=== PATIENT | male | born 1960 | race Caucasian/White ===

== ENCOUNTER → 2017-03-03 | Outpatient (CLI) | payer OTHER ==
[~2017-03-03] VITALS: Ht 180.3 cm; Wt 113.9 kg
[~2017-03-03] MED LIST: SENNA8.6 MG PO
[2017-03-03 10:00] VITALS: BP 136/84
== END | disposition home or self-care (01) ==
LOC: SPEC 08:57
DX: N19 Unspecified kidney failure (principal)

== ENCOUNTER → 2017-03-31 | Outpatient (CLI) | payer OTHER ==
[2017-03-31 08:20] VITALS: BP 158/83
[2017-03-31 10:35] VITALS: BP 167/86
[2017-03-31 10:49] VITALS: BP 167/86
== END ==
LOC: SPEC 06:30
DX: N19 Unspecified kidney failure (principal); I48.91 Unspecified atrial fibrillation; E78.5 Hyperlipidemia, unspecified; R60.1 Generalized edema; I12.0 Hypertensive chronic kidney disease with stage 5 chronic kidney disease or end stage renal disease; E11.22 Type 2 diabetes mellitus with diabetic chronic kidney disease; N18.6 End stage renal disease; I48.92 Unspecified atrial flutter; Z86.73 Personal history of transient ischemic attack (TIA), and cerebral infarction without residual deficits; Z83.3 Family history of diabetes mellitus; Z82.3 Family history of stroke; Z82.49 Family history of ischemic heart disease and other diseases of the circulatory system; Z80.8 Family history of malignant neoplasm of other organs or systems; Z87.891 Personal history of nicotine dependence

== ENCOUNTER → 2017-05-14 | Outpatient (CLI) | payer OTHER ==
[~2017-05-14] VITALS: Ht 180.3 cm; Wt 110.7 kg
[~2017-05-14] MED LIST changes: +ASPIR 8181 MG PER TUBE; +COLACE100 MG PER TUBE; +DEXTROSE 10% IV; +DUONEB 2.5-0.5 M3 ML INH; +EPOGEN10000 UNIT SUBQ; +ERYTHROMYCIN250 MG PER TUBE; +FLORASTOR250 MG PER TUBE; +HEPARIN SO5000 UNIT2 SUBQ; +LEVEMIR SUBQ; +LIPITOR40 MG PER TUBE; +LOPRESSOR100 M1 PER TUBE; +MIRALAX17 GM PER TUBE; +NEPHROCAPS SOFT1 CAP PER TUBE; +NOVOLOG100 UNIT/1 SUBQ; +OMEPRAZOLE 20 M20 M1 PO; +OXYCODONE HCL 55 MG PER TUBE; +OXYCONTIN10 M1; +PACERONE 200 M200 M1 PER TUBE; +PLAVIX 75 MG TA75 M1 PER TUBE; +PROBIOTIC1 EAC1 PO; +PROTONIX40 M2 PER TUBE; +REGLAN 10 MG TA10 MG PER TUBE; +ROCALTROL0.25 MCG PER TUBE; +TOBRAMYCIN IV; +TYLENOL325 MG PO; +ZERBAXA 1-0.51.5 GM IV
[2017-05-14 09:22] VITALS: BP 137/75
[2017-05-14 10:11] LABS: APTT 31.2 Seconds (24.5-32.8); INR 1.1; PROTIME 11.2 Seconds (9.3-11.4)
== END | disposition home or self-care (01) ==
LOC: SPEC 09:22
PROVIDERS: Radiology Vascular & Interventional Radiology
DX: K94.23 Gastrostomy malfunction (principal); E11.22 Type 2 diabetes mellitus with diabetic chronic kidney disease; I12.0 Hypertensive chronic kidney disease with stage 5 chronic kidney disease or end stage renal disease; N18.6 End stage renal disease; J44.9 Chronic obstructive pulmonary disease, unspecified; I48.91 Unspecified atrial fibrillation; I48.92 Unspecified atrial flutter; E78.5 Hyperlipidemia, unspecified; Z79.4 Long term (current) use of insulin; Z86.73 Personal history of transient ischemic attack (TIA), and cerebral infarction without residual deficits; Z98.890 Other specified postprocedural states; Z79.899 Other long term (current) drug therapy; Z87.891 Personal history of nicotine dependence

== ENCOUNTER → 2017-07-15 | Outpatient (CLI) | payer OTHER ==
[~2017-07-15] VITALS: Ht 348 cm; Wt 79.4 kg
[2017-07-15 10:55] VITALS: BP 93/65
== END | disposition home or self-care (01) ==
LOC: SPEC 06:25
DX: Z43.1 Encounter for attention to gastrostomy (principal)

== ENCOUNTER 2017-07-16 05:35 | Inpatient (IN) | payer OTHER ==
[~2017-07-16] VITALS: Ht 188 cm; Wt 74.9 kg
[2017-07-16] VITALS (7 sets, daily range): BP systolic 87–125; BP diastolic 56–82
--- NOTE | ~2017-07-16 | HC ---
[facility] [place] [address] CONSULTATION Name: HUSAM REILLY Room #: 201-P ADM IN M.R.#: [id number] Admission: 07/16/17 Attend Phys: Christian Hawkins MD Discharge: Date of : 62 Report #: [id number] THIS REPORT FOR: //name// CC: FAM unknown Christian Hawkins DATE OF SERVICE: 07/16/2017 INFECTIOUS DISEASE CONSULTATION DATE OF SERVICE: 07/16/2017 HISTORY OF PRESENT ILLNESS: The patient is a 57-year-old white man transferred to [place] [facility] on the date of admission with history of chest pain. The patient was recently transferred to [facility] with non-ST myocardial infarction and underwent coronary angioplasty ____ artery and kept on Plavix and aspirin. The patient apparently was complaining of chest pain on the date of transfer to [place]. EKG revealed atrial flutter with some inferior leads ischemic changes. No acute changes. It was felt by Dr. Matthews that the patient was not having acute cardiac event. The patient is admitted and evaluated by Cardiology services who also feel that possibly the chest pain is noncardiac in nature. Presently, the patient is more alert than when I saw him yesterday and day before yesterday at [place]. He is still having some chest pain and he is going to be medicated with some narcotics. This appears to be possibly noncardiac in origin. PAST MEDICAL HISTORY: Chronic respiratory failure, mechanical ventilator dependent, end-stage renal disease on chronic hemodialysis through a right internal jugular dialysis catheter. Previous lower respiratory tract infection with Klebsiella pneumoniae and Pseudomonas aeruginosa. As of lately the Pseudomonas aeruginosa turned out to be a multiple drug resistant organism only sensitive to tobramycin. The patient had a malfunction of gastrostomy tube that was replaced by Interventional Radiology as at [facility] on 06/15/2017. History of prolonged fevers due to lower respiratory tract infection. History of subdural hematoma and cerebrovascular accident with profound weakness. Diabetes mellitus. DRUG ALLERGIES: HYDROMORPHONE and HEPARIN. MEDICATIONS: Currently the patient is on calcitriol, insulin detemir, insulin lispro, p.r.n. glucose, glucagon, oxycodone immediate release p.r.n., oxycodone immediate release 5 mg q. 4 hours p.r.n., Atrovent albuterol inhalation treatments, metoclopramide per feeding tube, aspirin 81 mg daily, metoprolol 100 mg b.i.d., atorvastatin 40 mg daily, amiodarone 200 mg daily, clopidogrel bisulfate 75 mg daily, acetaminophen 650 q.4 hours p.r.n., polyethylene glycol daily 17 grams, nitroglycerin sublingual p.r.n., ondansetron p.r.n., dialysis [address] [place] [address] CONSULTATION Name: HUSAM REILLY Romario Room #: 201-P [facility] IN M.R.#: [id number] Admission: 07/16/17 Attend Phys: Christian Hawkins MD Discharge: Date of : 62 Report #: [id number] times weekly. REVIEW OF SYSTEMS: Unable to obtain, patient mainly complaining of chest pain that has persisted for hours now, it appears to be noncardiac. SOCIAL HISTORY: See old medical records. FAMILY HISTORY: See old medical records. PHYSICAL EXAMINATION: GENERAL: Chronically ill-appearing man, a bit more alert than previously when seen yesterday. VITAL SIGNS: Temperature 98.2, pulse 91, respirations 15, BP 92/56. HEENT: Some ptosis left eyelids. Mouth: No thrush. NECK: Supple, no thyromegaly. CHEST: Revealed right-sided internal jugular dialysis catheter and right-sided subclavian central venous catheter. LUNGS: Basilar crackles, rhonchi. HEART: S1, S2. No gallop or murmur. ABDOMEN: Soft. Gastrostomy tube in place. GENITAL AND RECTAL: Deferred. EXTREMITIES: Atrophy of muscle group of hands and lower extremities. NEUROLOGIC: Unable to evaluate. LABORATORY DATA: Sodium 130, potassium 3.3, BUN 21, creatinine 1.3, glucose 167. NT-proBNP 12,496. WBC 8.7, hemoglobin 7.9, platelets 264,000. White blood cell count differential revealed 86% segmented neutrophil. Arterial blood gases reveal pH 7.46, pCO2 45, pO2 111, bicarbonate 31. This set of gases is on FIO2 of 40%, 7 of PEEP and tidal volume 650. Serum troponin at this particularly the time is normal. EKG revealed atrial flutter and inferior leads ischemic changes. ASSESSMENT: 1. Atypical chest pain, possibly noncardiac 1. Coronary artery disease, status post non-ST myocardial infarction and recent coronary angioplasty last week. 2. 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 3. Chronic respiratory failure, ventilator dependent. 4. Renal failure on hemodialysis 3 times weekly. 5. Diabetes mellitus. 6. History of cerebrovascular accident and subdural hematoma secondary to anticoagulants. 7. Malnutrition. 8. Encephalopathy. [facility] [address] [place] [address] CONSULTATION Name: HUSAM REILLY Room #: 201-P ADM IN .R.#: [id number] Admission: 07/16/17 Attend Phys: Christian Hawkins MD Discharge: Date of : 62 Report #: [id number] SUGGESTIONS: At present, the patient is not infected looking, consequently do not recommend initiation of antibiotics. If any needed, tobramycin will be the drug of choice and he was previously colonized, infected with multiple drug resistant Pseudomonas aeruginosa, sensitive only to tobramycin. Dr. Canales, thank you for requesting my suggestions in the care of your patient. <ELECTRONICALLY SIGNED> By: Preston Mcneill MD 07/17/17 1001 1323 1642 Preston Mcneill MD /nt
--- NOTE | ~2017-07-16 | HC ---
[facility] [place] [address] CONSULTATION Name: HUSAM REILLY Room #: 201-P ADM IN M.R.#: [id number] Admission: 07/16/17 Attend Phys: Christian Hawkins MD Discharge: Date of : 62 Report #: [id number] THIS REPORT FOR: //name// CC: FAM unknown Christian Hawkins DATE OF SERVICE: 07/16/2017 REASON FOR CONSULTATION: Chest pain, ventilator management. IMPRESSION: 1. Chest pain, the patient relates similar to cardiac from before. 2. Chronic respiratory failure. 3. History of subdural bleed. 4. History of atrial fibrillation. 5. End-stage renal disease with hemodialysis. 6. History of deep venous thrombosis, right upper extremity. 7. Atrial flutter. PLAN: 1. Continue ventilator support. 2. Because of multidrug resistant Pseudomonas, we will ask ID to see, may do a CT PE protocol. HISTORY OF PRESENT ILLNESS: A 57-year-old presents from [facility] with chest pain, recently at [facility] with chest pain and angioplasty. The patient denies chest wall pain currently. MEDICATIONS: Include amiodarone, aspirin, atorvastatin, calcitriol, Plavix, Colace, Epogen, heparin, DuoNeb, metoprolol, B complex, Protonix. ALLERGIES: Family requests no HEPARIN secondary to bleeding per chart and HYDROMORPHONE. SOCIAL HISTORY: Will be obtained. REVIEW OF SYSTEMS: No headache, no shortness of breath, no abdominal pain, no chest wall pain. Understands and was able to point to objects. PAST SURGICAL HISTORY: Include cardiac catheterization, ____, PEG tube, craniotomy, right shoulder arthroscopy, tracheostomy, hemodialysis catheter. FAMILY HISTORY: Diabetes, stroke, heart disease and cancer. REVIEW OF SYSTEMS: Include hypertension, atrial flutter, respiratory failure, chronic pain, subdural bleed, TIA, hypertension, hyperlipidemia, diabetes, AFib. [facility] [address] [place] [address] CONSULTATION Name: HUSAM REILLY Room #: 201-P [facility] IN [facility].#: [id number] Admission: 07/16/17 Attend Phys: Christian Hawkins MD Discharge: Date of : 62 Report #: [id number] PHYSICAL EXAMINATION: VITAL SIGNS: Temperature 98.2, pulse 84, respirations 14, BP 100/69. Currently on ventilator, minute ventilation 10, peak airway pressure 30. LUNGS: Crackles, trach in place. HEART: Regular. No chest wall tenderness. Catheter is noted right chest. PEG tube in place. No edema. EXTREMITIES: Limited movement right arm, the ____ left well. Discussed with nurse. Troponin less than 0.04, lactate 1.5. EKG: Atrial arrhythmia. White count 8.7, hemoglobin 7.4, platelets 264. Chest x-ray showed bilateral infiltrates. ProBNP 12,496, BUN 21, creatinine 1.3, potassium 3.3, sodium 130. His percutaneous gastrojejunostomy changed yesterday. By: 1143 [id number] Keerthi Canales MD /nt
--- NOTE | ~2017-07-16 | HC ---
[facility] [place] [address] CONSULTATION Name: HUSAM REILLY Room #: 201-P [facility] IN ..#: [id number] Admission: 07/16/17 Attend Phys: Christian Hawkins MD Discharge: 07/18/17 Date of : 62 Report #: [id number] THIS REPORT FOR: //name// CC: FAM unknown Christian Hawkins DATE OF SERVICE: 07/17/2017 CHIEF COMPLAINT: Sacral ulceration. HISTORY OF PRESENT ILLNESS: This is a 57-year-old male patient with end-stage renal disease, history of a subdural hematoma, and chronic respiratory failure with trach. I was advised that he had a sacral pressure ulceration, I have been asked to see him in this regard. The patient denies any pain associated with this area. PAST MEDICAL HISTORY: Once again, end-stage renal disease, subdural hematoma, chronic respiratory failure with tracheostomy, and coronary artery disease, status post stent placement. SOCIAL HISTORY: The patient lives in a long-term care facility. No recent history of alcohol or tobacco use. FAMILY HISTORY: Unknown. REVIEW OF SYSTEMS: Unobtainable, the patient is unable or unwilling to answer any questions. MEDICATIONS: Include probiotic, NovoLog, Levemir, omeprazole, Colace, oxycodone, Tylenol, Pacerone, aspirin, Lipitor, Rocaltrol, Plavix, Lopressor, metoclopramide, and Nephrocaps. PHYSICAL EXAMINATION: VITAL SIGNS: Include pulse 74, respiratory rate of 18, blood pressure 146/85, and temperature 97.8. GENERAL: This is a chronically ill-appearing male patient who appears to be in minimal distress. HEENT: Head normocephalic. Nose and throat are clear. NECK: Demonstrates tracheostomy. LUNGS: Diminished. HEART: Regular. ABDOMEN: Soft. Bowel sounds present. Sacral region demonstrates an unstageable pressure ulceration with some slough and some fibrin in the center. No exposed deep structures are perceived at this time. CLINICAL IMPRESSION: [facility] [address] [place] [address] CONSULTATION Name: HUSAM REILLY Romario Room #: 201-P [facility] IN M..#: [id number] Admission: 07/16/17 Attend Phys: Christian Hawkins MD Discharge: 07/18/17 Date of : 62 Report #: [id number] 1. An unstageable sacral pressure ulceration. 2. Respiratory failure with tracheostomy and mechanical ventilation. 4. End-stage renal disease. 5. History of subdural hematoma. RECOMMENDATIONS: At this point in time, we will recommend topical Medihoney and a foam dressing to be changed Thursday, Thursday, Thursday and as needed for soiling or displacement. He will need low air loss mattress, turning and repositioning while in bed, Prevalon boots also while in bed for pressure prophylaxis, aggressive nutritional support to maximize wound healing. I appreciate being asked to see him in consultation. <ELECTRONICALLY SIGNED> By: Yung Sarabia MD 07/20/17 1443 1443 1834 Yung Sarabia MD /nt
--- NOTE | ~2017-07-16 | EKG ---
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 : 1960 Requested By: Phillip Goodson Order Number: [id number] MD: Carl Underwood Measurements Intervals [place] Rate: 70 P: DE: QRS: 49 QRSD: 134 T: 81 QT: 536 QTc: 579 Interpretive Statements Atrial flutter with predominant 4:[address] and T wave abnormality No previous ECG available for comparison Electronically Signed On 07-16-2017 7:52:24 CDT by Carl Underwood [email or web address] <ELECTRONICALLY SIGNED> By: Carl Underwood MD, [facility] 07/16/17 0752 0545 0545 Carl Underwood MD, [facility] /EPI
[~2017-07-16 05:35] MED LIST changes: -ASPIR 8181 MG PER TUBE; -COLACE100 MG PER TUBE; -DUONEB 2.5-0.5 M3 ML INH; -EPOGEN10000 UNIT SUBQ; -FLORASTOR250 MG PER TUBE; -HEPARIN SO5000 UNIT2 SUBQ; -LEVEMIR SUBQ; -LIPITOR40 MG PER TUBE; -LOPRESSOR100 M1 PER TUBE; -NEPHROCAPS SOFT1 CAP PER TUBE; -NOVOLOG100 UNIT/1 SUBQ; -OMEPRAZOLE 20 M20 M1 PO; -OXYCODONE HCL 55 MG PER TUBE; -OXYCONTIN10 M1; -PACERONE 200 M200 M1 PER TUBE; -PLAVIX 75 MG TA75 M1 PER TUBE; -PROBIOTIC1 EAC1 PO; -PROTONIX40 M2 PER TUBE; -REGLAN 10 MG TA10 MG PER TUBE; -ROCALTROL0.25 MCG PER TUBE; -TYLENOL325 MG PO
[2017-07-16 05:57] LABS: HEMATOCRIT 22.6 % (42.0-52.0); HEMOGLOBIN 7.4 gm/dL (14.0-18.0); MCH 30.3 pg (26.0-34.0); MCHC 32.9 g/dL (28.0-37.0); MCV 92.1 fL (80.0-100.0); PLATELET COUNT 264 thou/uL (150-400); RBC 2.45 mil/uL (4.50-6.00); RDW 21.4 % (10.5-14.5); WBC 8.7 thou/uL (4.0-11.0)
[2017-07-16 05:58] LABS: MANUAL DIFF YES
[2017-07-16] MEDS ORDERED: PACERONE 200 M200 M1 PER TUBE (06:08)
[2017-07-16] MEDS ORDERED: ASPIR 8181 MG PER TUBE (06:09)
[2017-07-16] MEDS ORDERED: ROCALTROL0.25 MCG PER TUBE (06:10)
[2017-07-16] MEDS ORDERED: LIPITOR40 MG PER TUBE (06:10)
[2017-07-16] MEDS ORDERED: COLACE100 MG PER TUBE ×2 (06:11→12:16)
[2017-07-16] MEDS ORDERED: PLAVIX 75 MG TA75 M1 PER TUBE (06:11)
[2017-07-16] MEDS ORDERED: EPOGEN10000 UNIT SUBQ (06:12)
[2017-07-16 06:14] LABS: ANION GAP 5 mmol/L (7-16); BUN 21 mg/dL (7-18); CALCIUM 8.6 mg/dL (8.5-10.1); CHLORIDE 95 mmol/L (98-107); CO2 30 mmol/L (21-32); CREATININE 1.3 mg/dL (0.7-1.3); GLUCOSE 167 mg/dL (74-106); POTASSIUM 3.3 mmol/L (3.5-5.1); SODIUM 130 mmol/L (136-145)
[2017-07-16] MEDS ORDERED: DUONEB 2.5-0.5 M3 ML INH (06:14)
[2017-07-16] MEDS ORDERED: HEPARIN SO5000 UNIT2 SUBQ (06:14)
[2017-07-16] MEDS ORDERED: REGLAN 10 MG TA10 MG PER TUBE (06:15)
[2017-07-16] MEDS ORDERED: LOPRESSOR100 M1 PER TUBE (06:15)
[2017-07-16] MEDS ORDERED: NEPHROCAPS SOFT1 CAP PER TUBE (06:16)
[2017-07-16] MEDS ORDERED: OXYCONTIN10 M1 (06:16)
[2017-07-16 06:17] LABS: TROPONIN-I < 0.04 ng/mL (<0.04-0.07)
[2017-07-16] MEDS ORDERED: FLORASTOR250 MG PER TUBE (06:17)
[2017-07-16] MEDS ORDERED: PROTONIX40 M2 PER TUBE (06:17)
[2017-07-16 06:32] LABS: ABSOLUTE NEUTROPHILS 7.8 thou/uL (1.4-8.2); ANISOCYTOSIS 2+; POLYCHROMASIA OCCASIONAL; TOTAL CELL COUNT 100
[2017-07-16 11:29] LABS: HEMATOCRIT 23.8 % (42.0-52.0); HEMOGLOBIN 7.9 gm/dL (14.0-18.0)
[2017-07-16] MEDS ORDERED: PROBIOTIC1 EAC1 PO (12:12)
[2017-07-16] MEDS ORDERED: NOVOLOG100 UNIT/1 SUBQ (12:13)
[2017-07-16] MEDS ORDERED: LEVEMIR SUBQ (12:14)
[2017-07-16] MEDS ORDERED: OMEPRAZOLE 20 M20 M1 PO (12:15)
[2017-07-16] MEDS ORDERED: OXYCODONE HCL 55 MG PER TUBE (12:18)
[2017-07-16] MEDS ORDERED: TYLENOL325 MG PO (12:19)
[2017-07-16 13:12] LABS: ABG SAMPLE TYPE ARTERIAL; BE(vivo) 7.4 mmol/L (-2 to +3); HCO3 31.9 mmol/L (22.0-26.0); LACTATE 1.22 mmol/L (0.5-2.0); O2(CT) 11.9 mL/dL (15.0-23.0); O2Hb 97.4 % (92.0-98.0); PCO2 45.2 mmHg (35.0-45.0); PO2 111.2 mmHg (80.0-100.0); STICK SITE R.RADIAL; TIDAL VOLUME 650 ml; pH 7.466 (7.360-7.450); sO2 98.3 % (92.0-98.0); tCO2 33.2 mmol/L (24.0-30.0)
[2017-07-16 13:33] LABS: % SATURATION 29 % (20-39); IRON 33 ug/dL (65-175); TIBC 115 ug/dL (250-450); UIBC 82 ug/dL
[2017-07-16 14:11] LABS: FOLIC ACID 16.7 ng/mL (8.6-58.9)
[2017-07-16 16:53] LABS: HEMATOCRIT 22.2 % (42.0-52.0); HEMOGLOBIN 7.5 gm/dL (14.0-18.0)
[2017-07-16 23:57] LABS: ABG SAMPLE TYPE ARTERIAL; HCO3 31.5 mmol/L (22.0-26.0); O2(CT) 11.9 mL/dL (15.0-23.0); O2Hb 95.4 % (92.0-98.0); PCO2 44.9 mmHg (35.0-45.0); PO2 79.3 mmHg (80.0-100.0); pH 7.464 (7.360-7.450); sO2 96.2 % (92.0-98.0); tCO2 32.9 mmol/L (24.0-30.0)
[2017-07-16 23:58] LABS: STICK SITE R.RADIAL; TIDAL VOLUME 500 ml
[2017-07-17] VITALS (7 sets, daily range): BP systolic 103–146; BP diastolic 64–91
[2017-07-17 06:07] LABS: HEMATOCRIT 23.1 % (42.0-52.0); HEMOGLOBIN 7.6 gm/dL (14.0-18.0); MCH 29.9 pg (26.0-34.0); MCHC 32.7 g/dL (28.0-37.0); MCV 91.7 fL (80.0-100.0); RBC 2.52 mil/uL (4.50-6.00); RDW 21.2 % (10.5-14.5); WBC 11.1 thou/uL (4.0-11.0)
[2017-07-17 06:30] LABS: ALBUMIN 1.6 g/dL (3.4-5.0); CALCIUM 8.9 mg/dL (8.5-10.1); CREATININE 1.6 mg/dL (0.7-1.3); POTASSIUM 3.6 mmol/L (3.5-5.1); TOTAL BILIRUBIN 0.5 mg/dL (<0.1-1.0); TOTAL PROTEIN 6.8 g/dL (6.4-8.2)
[2017-07-17 15:41] LABS: ABG SAMPLE TYPE ARTERIAL; BE(vivo) 5.5 mmol/L (-2 to +3); HCO3 30.7 mmol/L (22.0-26.0); LACTATE 0.91 mmol/L (0.5-2.0); O2(CT) 12.4 mL/dL (15.0-23.0); O2Hb 92.9 % (92.0-98.0); PCO2 48.2 mmHg (35.0-45.0); PO2 69.1 mmHg (80.0-100.0); pH 7.422 (7.360-7.450); tCO2 32.2 mmol/L (24.0-30.0)
[2017-07-17 15:42] LABS: STICK SITE L.RADIAL; TIDAL VOLUME 500 ml
[2017-07-18 03:39] VITALS: BP 117/74
[2017-07-18 09:10] VITALS: BP 114/77
[2017-07-18 12:40] VITALS: BP 120/66
== END 2017-07-18 16:45 | DRG 291 ==
LOC: ER 05:35 → 2N 07:22 → EROBS 07:22 → 2N 08:38
PROVIDERS: Emergency Medicine; Hospitalist; Internal Medicine; Internal Medicine Critical Care Medicine; Internal Medicine Pulmonary Disease
PROC: 5A1945Z Respiratory Ventilation, 24-96 Consecutive Hours (ICD-10-PCS; principal; 2017-07-16)
PROC: 5A1D70Z Performance of Urinary Filtration, Intermittent, Less than 6 Hours Per Day (ICD-10-PCS; 2017-07-17)
DX: I13.2 Hypertensive heart and chronic kidney disease with heart failure and with stage 5 chronic kidney disease, or end stage renal disease (principal); I50.33 Acute on chronic diastolic (congestive) heart failure; N18.6 End stage renal disease; G93.40 Encephalopathy, unspecified; E43 Unspecified severe protein-calorie malnutrition; J96.21 Acute and chronic respiratory failure with hypoxia; E87.1 Hypo-osmolality and hyponatremia; I48.92 Unspecified atrial flutter; Q89.8 Other specified congenital malformations; R13.10 Dysphagia, unspecified; E87.6 Hypokalemia; D63.8 Anemia in other chronic diseases classified elsewhere; L89.150 Pressure ulcer of sacral region, unstageable; E11.22 Type 2 diabetes mellitus with diabetic chronic kidney disease; I25.10 Atherosclerotic heart disease of native coronary artery without angina pectoris; I95.9 Hypotension, unspecified; G89.29 Other chronic pain; M54.9 Dorsalgia, unspecified; E78.5 Hyperlipidemia, unspecified; Z86.73 Personal history of transient ischemic attack (TIA), and cerebral infarction without residual deficits; Z83.3 Family history of diabetes mellitus; Z82.3 Family history of stroke; Z80.9 Family history of malignant neoplasm, unspecified; Z82.49 Family history of ischemic heart disease and other diseases of the circulatory system; Z93.0 Tracheostomy status; Z93.1 Gastrostomy status; Z86.718 Personal history of other venous thrombosis and embolism; Z88.8 Allergy status to other drugs, medicaments and biological substances; Z87.891 Personal history of nicotine dependence; Z87.01 Personal history of pneumonia (recurrent); Z79.4 Long term (current) use of insulin; I25.2 Old myocardial infarction; Z68.21 Body mass index [BMI] 21.0-21.9, adult; I48.0 Paroxysmal atrial fibrillation; Z99.2 Dependence on renal dialysis
CPT/HCPCS: 10081; 32100